=== PATIENT | female | born 2000 | race Caucasian/White ===

== ENCOUNTER 2020-04-19 08:14 | Outpatient (CLI) | payer OTHER, SELFPAY ==
--- NOTE | ~2020-04-19 | US_ITS ---
EXAMINATION: US art doppler w press LE DATE: 04/19/2020 09:02 BMET INDICATION: Purple right fifth toe TECHNIQUE: Segmental pressures and plethysmographic and Doppler waveforms of the brachial and lower e xtremity arteries were obtained. COMPARISON: None. FINDINGS: Right and left brachial artery pressures of 105 mm Hg and 108 mm Hg, respectively, are concordant (no rmal difference <= 30 mmHg). The right high-thigh pressure index is 1.21 (normal > 1.2). The right ankle-brachial index (JAMEY) is 1 .22 (normal >= 0.9-1.0). The right great toe-brachial index (TBI) is 0.72 (normal >= 0.60). The right lower extremity segmental pressure gradients are within normal limits (normal gradients <= 20-30 mmH g between adjacent levels on the same leg or the same levels on the two legs). The left high-thigh pressure index is 1.11. The left JAMEY is 1.12. The left TBI is 0.86. The left lowe r extremity segmental pressure gradients are within normal limits. IMPRESSION: 1. Unremarkable lower extremity arterial Doppler Reviewed, dictated and finalized at location B.
== END 2020-04-19 08:15 | disposition home or self-care (01) ==
PROVIDERS: PCP Emergency Medicine; Visit Provider Emergency Medicine
DX: M79.89 Other specified soft tissue disorders (principal)
CPT/HCPCS: 93923